=== PATIENT | male | born 1965 | race Caucasian/White ===

== ENCOUNTER 2024-08-12 21:58 | Inpatient (IN) | payer OTHER ==
[2024-08-12 22:28] VITALS: BMI 32.3
[2024-08-12] MEDS ORDERED: NALOXONE HCL 0.4 MG/ML VIAL IM PRN (23:19)
[2024-08-12] MEDS ORDERED: ONDANSETRON *ODT* 4 MG TABLET SL PRN (23:19)
[2024-08-12] MEDS ORDERED: LOPERAMIDE HCL 2 MG CAPSULE PO PRN (23:19)
[2024-08-12] MEDS ORDERED: NALOXONE (NARCAN) HCL 4 MG/0.1 ML SPRAY NS PRN (23:19)
[2024-08-12] MEDS ORDERED: DICYCLOMINE HCL 10 MG CAPSULE PO PRN (23:19)
[2024-08-12] MEDS ORDERED: guaiFENesin 600 MG TABLET.ER (FP) PO PRN (23:19)
[2024-08-12] MEDS ORDERED: NICOTINE POLACRILEX 2 MG GUM BUC PRN (23:19)
[2024-08-12] MEDS ORDERED: IBUPROFEN 400 MG TABLET (FP) PO PRN (23:19)
[2024-08-12] MEDS ORDERED: ACETAMINOPHEN 325 MG TABLET (FP) PO PRN (23:19)
[2024-08-12] MEDS ORDERED: BISMUTH SUBSALICYLATE 524 MG/30 ML PO PRN (23:19)
[2024-08-12] MEDS ORDERED: BENZONATATE 200 MG CAPSULE PO PRN (23:19)
[2024-08-12] MEDS ORDERED: MAG HYDROX/AL HYDROX/SIMETH 30 ML UNIT-DOSE CUP PO PRN (23:19)
[2024-08-12] MEDS ORDERED: BENZOCAINE/MENTHOL (CHLORASEPTIC ) LOZENGE MM PRN (23:19)
[2024-08-12] MEDS ORDERED: MAGNESIUM HYDROX 2400MG/30ML ORAL SUSPENSION 30 ML CUP PO PRN (23:19)
[2024-08-12] MEDS ORDERED: POLYETHYLENE GLYCOL (HEALTHYLAX) 3350 17 GM PACKET PO PRN (23:19)
[2024-08-12] MEDS ORDERED: IBUPROFEN 600 MG TABLET (FP) PO PRN (23:19)
[2024-08-13] MEDS: hydrOXYzine PAMOATE 25 MG CAPSULE (FP) PO PRN (01:02)
[2024-08-13] MEDS: METHOCARBAMOL 500 MG TABLET PO PRN (01:02)
[2024-08-13] MEDS ORDERED: LORazepam 1 MG TABLET PO PRN (08:29)
[2024-08-13] MEDS: ASPIRIN 81 MG CHEWABLE TABLETS PO SCH (09:06)
[2024-08-13] MEDS: NICOTINE 14 MG/24 HOURS TOPICAL PATCH TD SCH (09:43)
[2024-08-13] MEDS: PRENATAL VITAMINS W/ FOLIC ACID TABLET (FP) PO SCH (09:44)
[2024-08-13] MEDS: LOSARTAN 50MG/HCTZ 12.5MG 1 TAB PO SCH (09:56)
[2024-08-13] MEDS: LORazepam 2 MG TABLET PO SCH (10:58)
[2024-08-13 13:38] LABS: HEMATOCRIT 38.9 % (35.4-49); HEMOGLOBIN 12.8 GM/dL (11.7-16.9); MCH 30.3 pg (25.7-33.7); MCHC 32.9 g/dl (32.0-35.9); MEAN CELL VOLUME 92.3 fl (80-96); PLATELET COUNT 230 10^3/uL (134-434); RBC 4.21 M/mm3 (4.00-5.60); WHITE BLOOD COUNT 5.9 K/mm3 (4.0-10.0)
[2024-08-13 14:10] LABS: CHLORIDE 104 mmol/L (98-107); POTASSIUM 3.5 mmol/L (3.5-5.1); SODIUM 138 mmol/L (136-145)
[2024-08-13 14:32] LABS: ALBUMIN 3.4 g/dl (3.4-5.0); ANION GAP 8 mmol/L (4-13); CALCIUM 9.2 mg/dL (8.5-10.1); CO2 26 mmol/L (21-32); GLUCOSE,RANDOM 113 mg/dL (74-106)
[2024-08-13 14:33] LABS: BLOOD UREA NITROGEN 17.2 mg/dL (7-18)
[2024-08-13 14:35] LABS: SGPT/ALT 31 U/L (13-61)
[2024-08-13 14:36] LABS: SGOT/AST 30 U/L (15-37)
[2024-08-13 14:37] LABS: BILIRUBIN,TOTAL 0.4 mg/dL (0.2-1); TOT PROT 6.7 g/dl (6.4-8.2)
[2024-08-13 14:38] LABS: ALK PHOS 132 U/L (45-117)
[2024-08-13] MEDS: MELATONIN 5 MG TABLETS PO SCH (22:36)
[2024-08-13] MEDS: THIAMINE 100 MG TABLET PO SCH (22:36)
[2024-08-14 09:03] VITALS: RESP 16
[2024-08-14 12:52] VITALS: BP 148/80; PULSE 76; TEMP 97.1
[2024-08-15] MEDS ORDERED: LORazepam 1 MG TABLET PO SCH (05:00)
[2024-08-16] MEDS ORDERED: LORazepam 0.5 MG TABLET PO PRN
[2024-08-16] MEDS ORDERED: LORazepam 0.5 MG TABLET PO SCH (05:00)
[2024-08-17] MEDS ORDERED: LORazepam 0.5 MG TABLET PO ONE (05:00)
== END 2024-08-14 14:30 | disposition left against medical advice (07) | DRG 770 ==
LOC: YASAS 21:58 → Y6N 23:27
PROVIDERS: ADMIT Allergy & Immunology; ATTEND Surgery
PROC: HZ2ZZZZ Detoxification Services for Substance Abuse Treatment (ICD-10-PCS; principal; 2024-08-12)
DX: F10.230 Alcohol dependence with withdrawal, uncomplicated (principal); F17.210 Nicotine dependence, cigarettes, uncomplicated; F31.9 Bipolar disorder, unspecified; F19.282 Other psychoactive substance dependence with psychoactive substance-induced sleep disorder; F19.24 Other psychoactive substance dependence with psychoactive substance-induced mood disorder; I10 Essential (primary) hypertension; J45.909 Unspecified asthma, uncomplicated
CPT/HCPCS: 36415; 80053; 80305; 80307; 85027; 86780; 93005; 93010